=== PATIENT | female | born 2000 | race Caucasian/White ===

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

== ENCOUNTER 2018-02-03 17:43 | Emergency (ER) | payer BC ==
[2018-02-03 17:47] VITALS: TEMP 98.4
--- NOTE | 2018-02-03 18:20 | EDPHY ---
H & P Stated Complaint: cough for 3 weeks Time Seen by Provider: 02/03/18 18:19 HPI/ROS: HPI: This is a 17-year-old female who presents with Chief Complaint: cough for 3 weeks Location: chest Quality: cough Duration: 3 weeks Signs and Symptoms: no shortness of breath at rest, no shortness of breath on exertion, + nonproductive cough, no chest pain, no palpitations, no lower extremity edema, no wheezing, no orthopnea, no paroxysmal nocturnal dyspnea, no fever, no injury/trauma, no hemoptysis, no carpal pedal spasms Timing: Intermittent, worse at night Severity: Moderate Context: Patient is a local student, originally from [place], presents with dry nonproductive cough for the last 3 weeks. Denies any itchy watery eyes, postnasal drip, rhinorrhea. Patient reports that she was diagnosed with bronchitis back in September. She has no history of asthma. Nonsmoker. Denies any chest pain/fever/nausea/vomiting/neck stiffness. Takes oral control. Using [id number] cough medicine without any improvement. No recent foreign travel. Modifying Factors: See above Comment: ROS: see HPI Constitutional: No fever, no chills, no weight loss Eyes: No blurred vision Respiratory: No shortness of breath, no cough Cardiovascular: No chest pain, no palpitations, no lower extremity edema Gastrointestinal: No nausea, no vomiting, no diarrhea Genitourinary: No dysuria Extremities: No myalgias Neurologic: No weakness, no numbness Skin: No rashes Hematologic: No bruising, no bleeding MEDICAL/SURGICAL/SOCIAL HISTORY: Medical history: Generally healthy. Does not take any regular medications. Surgical history: Denies Social history: Local student CONSTITUTIONAL: Extremely well-appearing teenage white female, awake and alert , no obvious distress HEENT: Atraumatic and normocephalic, PERRL, EOMI. Tympanic membranes clear. Oropharynx clear, no exudate and moist pink mucosa. Airway patent. No lymphadenopathy. No meningismus. Cardiovascular: Normal S1/S2, regular rate, regular rhythm, without murmur rub or gallop. PULMONARY/CHEST: Symmetrical and nontender. Clear to auscultation bilaterally. Good air movement. No accessory muscle usage. Dry cough noted. ABDOMEN: Soft, nondistended, nontender, no rebound, no guarding, no peritoneal signs, no masses or organomegaly. No CVAT. EXTREMITIES: 2/2 pulses, strength 5/5, no deformities, no clubbing, no cyanosis or edema. NEUROLOGICAL: no focal neuro deficits. GCS 15. SKIN: Warm and dry, no erythema. no rash. Good capillary refill. Source: Patient Exam Limitations: No limitations - Personal History Current Tetanus/Diphtheria Vaccine: Unsure Current Tetanus Diphtheria and Acellular Pertussis (TDAP): Unsure - Medical/Surgical History Hx Asthma: No Hx Chronic Respiratory Disease: No Hx Diabetes: No Hx Cardiac Disease: No Hx Renal Disease: No Hx Cirrhosis: No Hx Alcoholism: No Hx HIV/AIDS: No Hx Splenectomy or Spleen Trauma: No Other PMH: NO PMH - Social History Smoking Status: Former smoker Constitutional: Initial Vital Signs Temperature (C) 36.9 C 02/03/18 17:46 Heart Rate 85 02/03/18 17:46 Respiratory Rate 20 02/03/18 17:46 Blood Pressure 126/73 H 02/03/18 17:46 O2 Sat (%) 96 02/03/18 17:46 O2 Delivery Mode Room Air Allergies/Adverse Reactions: No Known Allergies Allergy (Verified 02/03/18 17:45) Home Medications: Medication Instructions Recorded Concerta 36 mg 09/17/17 Albuterol Sulfate [Ventolin Hfa] 8 gm IH Q4 PRN #1 hfa.aer.ad 02/03/18 Benzonatate [Tessalon Pearles (RX)] 100 mg PO Q6 PRN #12 cap 02/03/18 Control 02/03/18 predniSONE [predniSONE TAPER] 10 mg PO DAILY 6 Days ea 02/03/18 Medical Decision Making - Diagnostics Imaging Results: Imaging Impressions Chest X-Ray 02/03/18 18:28 Impression: No evidence of discrete pneumonia ED Course/Re-evaluation: Vital signs reviewed upon arrival in stable Low yield for pulmonary embolism based on Wells criteria. Chest x-ray ordered and my read no opacity, no effusion, no pneumothorax, no widened mediastinum Given a prescription for steroid taper, Tessalon Perles, albuterol inhaler No antibiotics indicated at this time. This patient was seen under the supervision of my secondary supervising physician. I evaluated care for this patient independently. Differential Diagnosis: Cough including but not limited to viral syndromes including influenza, bronchitis, pulmonary embolism, pneumonia and sepsis. Departure - Departure Disposition: Home, Routine, Self-Care Clinical Impression: Cough, Bronchitis Condition: Good Instructions: Acute Bronchitis (ED) Additional Instructions: Return to the ER immediately if you experience fevers/chills, shortness of breath, abdominal pain, inability to tolerate oral intake, or any other symptoms that concern you. Referrals: [facility],. [Primary Care Provider] - As per Instructions Prescriptions: Albuterol Sulfate [Ventolin Hfa] 8 gm IH Q4 PRN #1 hfa.aer.ad PRN Reason: Wheezing Benzonatate [Tessalon Pearles (RX)] 100 mg PO Q6 PRN #12 cap PRN Reason: Cough, Moderate predniSONE [predniSONE TAPER] 10 mg PO DAILY 6 Days ea
[2018-02-03 18:59] VITALS: BP 107/79; PULSE 97; RESP 18; O2SAT 92
== END 2018-02-03 19:13 | disposition home or self-care (01) ==
DX: J40 Bronchitis, not specified as acute or chronic (principal); Z87.891 Personal history of nicotine dependence

== ENCOUNTER 2018-07-17 13:40 | Emergency (ER) | payer BC ==
[2018-07-17 13:46] VITALS: BP 118/74
--- NOTE | 2018-07-17 14:40 | EDPHY ---
H & P Time Seen by Provider: 07/17/18 13:50 HPI/ROS: Chief complaint: Sore throat History of present illness: This is a 18-year-old female who presents to the emergency department for sore throat. She reports the onset of symptoms over the last few days. Associated loss of voice, slight cough. No fever. No chest congestion. No rash. Smoking Status: Former smoker Physical Exam: General Appearance: Alert, nontoxic. Eyes: Pupils equal and round no injection. ENT: Tympanic membranes, external auditory canals, external ears and surrounding soft tissue including over the mastoids are unremarkable. Nasopharynx is not injected. There is no rhinorrhea. Oropharynx is injected. There is no edema. There is no exudate. There is no asymmetry. The uvula is midline. No elevation of the tongue. There is no hoarseness, no drooling, no trismus, no stridor. Respiratory: Chest is nontender, lungs are clear to auscultation. Cardiac: regular rate and rhythm. Musculoskeletal: Neck is supple and nontender. Extremities have full range of motion and are nontender. Skin: No rashes or lesions. Neurologic: Alert and oriented. No meningismus. Constitutional: Initial Vital Signs Temperature (C) 36.6 C 07/17/18 13:44 Heart Rate 99 07/17/18 13:44 Respiratory Rate 18 07/17/18 13:44 Blood Pressure 118/74 07/17/18 13:44 O2 Sat (%) 95 07/17/18 13:44 O2 Delivery Mode Room Air Allergies/Adverse Reactions: No Known Allergies Allergy (Verified 02/03/18 17:45) Home Medications: Medication Instructions Recorded Concerta 07/17/18 Ortho-Novum 1-35-28 Tablet 07/17/18 MDM/Departure - [facility] ED Course/Re-evaluation: Patient seen under the supervision of my secondary supervising physician Dr. Lashawn Ellington. Patient presents for sore throat. She is nontoxic. Strep swab is negative. No evidence of complications. I discussed symptomatic care. She is asked to follow up with a primary care doctor for recheck. Return precautions are given. Differential Diagnosis: Included but not limited to pharyngitis, strep pharyngitis, laryngitis, unlikely for complications such as abscess formation or pneumonia - Depart Disposition: Home, Routine, Self-Care Clinical Impression: Acute pharyngitis Qualifiers: Pharyngitis/tonsillitis etiology: unspecified etiology Qualified Code(s): J02.9 - Acute pharyngitis, unspecified Condition: Good Instructions: Pharyngitis (ED) Additional Instructions: Follow-up with a primary care doctor next week for recheck Use ibuprofen 600 mg 3 times a day for the next 2-3 days for pain control Drink plenty of water to stay hydrated and get plenty of rest. If symptoms worsen or new symptoms develop return to the emergency room for recheck Referrals: NONE *PRIMARY CARE P,. [Primary Care Provider] - As per Instructions [facility] [Clinic] - As per Instructions
== END 2018-07-17 14:49 | disposition home or self-care (01) ==
DX: J02.9 Acute pharyngitis, unspecified (principal); Z87.891 Personal history of nicotine dependence

== ENCOUNTER 2018-08-12 16:54 | Emergency (ER) | payer BC ==
--- NOTE | 2018-08-12 17:43 | EDPHY ---
H & P Time Seen by Provider: 08/12/18 17:30 HPI/ROS: CHIEF COMPLAINT: Severe cough and posttussive emesis HISTORY OF PRESENT ILLNESS: 18-year-old patient lives in a story house at [place]. She was vaccinated as a child. She presents with a worsening the cough for about 1 month. She describes the paroxysmal spasmodic cough associated with posttussive emesis. But symptoms moderate to severe, preventing her from sleeping. Not associated with chest pain or hemoptysis or leg swelling. No recent travel or immobilization, no night sweats or weight change recently. No exposure to tuberculosis. REVIEW OF SYSTEMS: Eye: no change in vision ENT: Sore throat after coughing. Cardiac: no chest pain or syncope Pulmonary: HPI Abdomen: Mild stomach ache, no diarrhea. She does not really have vomiting after eating, but has feeling of retching after persistent paroxysmal coughing. Musculoskeletal: No Leg swelling Skin: no rash Neuro: no headache Constitutional: no fever : no urinary symptoms A comprehensive 10 point review of systems is otherwise negative aside from elements mentioned in the history of present illness. PAST MEDICAL HISTORY: Negative Social history: Nonsmoker, denies drugs. General Appearance: Alert and conversant, cooperative. Eyes: No scleral icterus. ENT, Mouth: Slight pharyngeal erythema but no exudate, no trismus, uvula midline. Respiratory: Normal respiratory effort, breath sounds equal, lungs are clear to auscultation. No wheezing or rhonchi. Cardiovascular: Regular rate and rhythm. Gastrointestinal: Abdomen is soft and non tender. Neurological: Alert, face symmetric, normal motor and sensory in extremities. Skin: Warm and dry, no rashes. Musculoskeletal: No peripheral edema. No calf tenderness. Psychiatric: Not agitated. Emergency Department course/MDM: Patient presents with paroxysmal cough and posttussive emesis, concern for untreated pertussis. Impaired treatment with Tessalon Perle and azithromycin discussed with the patient and consented. Low likelihood for pneumonia, pulmonary embolism, asthma, pneumothorax. Smoking Status: Former smoker Constitutional: Initial Vital Signs Temperature (C) 36.6 C 08/12/18 17:04 Heart Rate 92 08/12/18 17:04 Respiratory Rate 18 08/12/18 17:04 Blood Pressure 122/73 H 08/12/18 17:04 O2 Sat (%) 96 08/12/18 17:04 O2 Delivery Mode Room Air Allergies/Adverse Reactions: No Known Allergies Allergy (Verified 08/12/18 17:03) Home Medications: Medication Instructions Recorded Concerta 07/17/18 Ortho-Novum 1-35-28 Tablet 07/17/18 Azithromycin [Zithromax] 250 mg PO DAILY #6 tab 08/12/18 Benzonatate [Tessalon Pearles (RX)] 100 mg PO Q8 PRN #15 cap 08/12/18 ZYRTEC 08/12/18 MDM/Departure - Depart Disposition: Home, Routine, Self-Care Clinical Impression: paroxysmal cough Condition: Good Instructions: Benzonatate (By mouth), Azithromycin (By mouth), Acute Cough (ED) Prescriptions: Azithromycin [Zithromax] 250 mg PO DAILY #6 tab Benzonatate [Tessalon Pearles (RX)] 100 mg PO Q8 PRN #15 cap PRN Reason: Cough, Moderate Referrals: [facility],. [Clinic] - 5-7 days, if not improved
[2018-08-12 17:49] VITALS: BP 125/78
== END 2018-08-12 17:49 | disposition home or self-care (01) ==
DX: R05 Cough (principal); Z87.891 Personal history of nicotine dependence

== ENCOUNTER → 2018-10-05 | Outpatient (CLI) | payer BC | LOC: FIMAGING 14:23 | PROVIDERS: ATTEND Internal Medicine | DX: R05 Cough (principal); J45.909 Unspecified asthma, uncomplicated ==